=== PATIENT | female | born 1990 | race American Indian/Alaskan Native ===

== ENCOUNTER 2017-05-23 15:37 | Emergency (ER) | payer SELFPAY ==
[2017-05-23 15:58] VITALS: BP 135/78
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
== END 2017-05-23 17:03 | disposition left against medical advice (07) ==
LOC: ED 15:37
DX: Z53.21 Procedure and treatment not carried out due to patient leaving prior to being seen by health care provider (principal)
CPT/HCPCS: 36415; 84702; 84703; 99283

== ENCOUNTER 2020-12-05 06:16 | Emergency (ER) | payer MEDICAID ==
[2020-12-05] MEDS ORDERED: ALBUTEROL 2.5 MG/3 ML NEBU IH ONE ×2 (06:49→06:51)
[2020-12-05] MEDS ORDERED: predniSONE 20 MG TAB PO ONE (06:51)
[2020-12-05] MEDS ORDERED: IPRATROPIUM 0.02% NEBU 2.5 ML IH ONE (06:51)
--- NOTE | 2020-12-05 06:53 | Emergency Department Report ---
HPI - General Chief Complaint: Adult Asthma Time Seen by Provider: 12/05/20 06:41 - HPI HPI: This is a 30-year-old -[place] female presents to the emergency department with shortness of breath, wheezing and chest tightness that started about 30 minutes prior to arrival that the patient says is "my asthma." She says that she ran out of her medications a few days ago and has been having a difficult time getting them refilled. She denies any fever, chest pain, lower extremity swelling, back pain, nausea, vomiting or diaphoresis. She denies any tobacco use. No recent travel or sick contacts at home. No known exposure to anyone with COVID-19. The patient is usually on an albuterol/ipratropium nebulized treatment, Qvar, a rescue inhaler, and some type of inhaled steroid. ED Past Medical Hx - Past Medical History Previous Medical History?: Yes Hx Hypertension: No Hx Congestive Heart Failure: No Hx Diabetes: No Hx Deep Vein Thrombosis: No Hx Renal Disease: No Hx Sickle Cell Disease: No Hx Seizures: No Hx Asthma: Yes (last attack 1 year ago) Hx COPD: No Hx HIV: No - Surgical History Past Surgical History?: No - Social History Smoking Status: Unknown if ever smoked - Medications Home Medications: Home Medications Medication Instructions Recorded Confirmed Last Taken Type Albuterol Sulfate [Albuterol 0.63% 0.63 mg IH TID PRN #90 ml 01/12/16 Unknown Rx NEBS] Prednisone [predniSONE 10 mg 10 mg PO .TAPER #1 tab.ds.pk 01/12/16 Unknown Rx (6-Day Pack, 21 Tabs)] Albuterol Mdi (or & Nicu Only) 1 puff IH Q4-6H PRN #1 inha 12/05/20 Unknown Rx [ProAir HFA Inhaler] Beclomethasone Dipropionate [Qvar 1 - 2 puff IH BID #1 hfa.aeroba 12/05/20 Unknown Rx Redihaler] Ipratropium/Albuterol Sulfate 1 ampul IH Q6HR PRN #1 box 12/05/20 Unknown Rx [DUONEB *Not for PRN Use*] predniSONE [Deltasone] 20 mg PO BID #8 tab 12/05/20 Unknown Rx ED Review of Systems ROS: Stated complaint: ASTHMA Other details as noted in HPI Comment: All other systems reviewed and negative Constitutional: denies: chills, fever Eyes: denies: eye pain, vision change ENT: denies: ear pain, throat pain Respiratory: cough, shortness of breath, wheezing Cardiovascular: denies: palpitations, edema Gastrointestinal: denies: abdominal pain, vomiting Genitourinary: denies: dysuria, discharge Musculoskeletal: denies: back pain, arthralgia Skin: denies: rash, lesions Neurological: denies: headache, weakness Physical Exam - Physical Exam Vital Signs: Vital Signs 12/05/20 06:36 Pulse Rate 86 Respiratory 24 Rate O2 Sat by Pulse 95 Oximetry Physical Exam: GENERAL: The patient is well-developed well-nourished. HENT: Normocephalic. Atraumatic. Patient has moist mucous membranes. EYES: Extraocular motions are intact. NECK: Supple. Trachea is midline. CHEST/LUNGS: Mild to moderate wheezing throughout the chest. There is some tachypnea but no accessory muscle use. HEART/CARDIOVASCULAR: Regular. There is no tachycardia. There is no murmur. ABDOMEN: Abdomen is soft, nontender. Patient has normal bowel sounds. SKIN: Skin is warm and dry. NEURO: The patient is awake, alert, and oriented. The patient is cooperative. The patient has no focal neurologic deficits. Normal speech. MUSCULOSKELETAL: There is no tenderness or deformity. There is no limitation range of motion. ED Course Vital Signs 12/05/20 06:36 Pulse Rate 86 Respiratory 24 Rate O2 Sat by Pulse 95 Oximetry ED Medical Decision Making - Medical Decision Making This patient presents with some shortness of breath and wheezing that she feels is due to an asthma exacerbation. She just recently ran out of her medications. On examination she has moderate wheezing throughout the chest and some tachypnea. She does not appear in any respiratory distress but does appear in need of a breathing treatment. The patient was given an extended breathing treatment with both albuterol and ipratropium. She was also given a dose of prednisone. Upon reevaluation the patient is feeling greatly improved and also appears improved with almost complete resolution of her bronchospasm/wheezing. The patient no longer has any tachypnea. Her vital signs have been reassuring including being afebrile and no hypoxia. I did not feel that the patient required any laboratory studies. The patient deferred/refused a chest x-ray. She was seen ambulatory in the emergency department without any return or increase of bronchospasm or increased work of breathing. She says that she has good outpatient follow-up with primary care. She has been given a prescription for a course of steroids, her Qvar, and the albuterol inhaler and nebulizer treatments. She will return to the emergency department with any worsening of her symptoms or with any acute distress. Critical Care Time: No Critical care attestation.: If time is entered above; I have spent that time in minutes in the direct care of this critically ill patient, excluding procedure time. ED Disposition Clinical Impression: Medication refill Asthma exacerbation Qualifiers: Asthma severity: unspecified severity Asthma persistence: unspecified Qualified Code(s): J45.901 - Unspecified asthma with (acute) exacerbation Disposition: TO HOME OR SELFCARE Is pt being admited?: No Condition: Stable Instructions: Asthma Attack Additional Instructions: Please follow-up with your primary care physician in the next few days. Return to the emergency department with any worsening of your symptoms, new or concerning symptoms not addressed during this current emergency department visit, or with any acute distress. Prescriptions: predniSONE [Deltasone] 20 mg PO BID #8 tab Ipratropium/Albuterol Sulfate [DUONEB *Not for PRN Use*] 1 ampul IH Q6HR PRN #1 box PRN Reason: Wheezing Albuterol Mdi (or & Nicu Only) [ProAir HFA Inhaler] 1 puff IH Q4-6H PRN #1 inha PRN Reason: Shortness Of Breath Beclomethasone Dipropionate [Qvar Redihaler] 1 - 2 puff IH BID #1 hfa.aeroba Referrals: PRIMARY CARE, [Primary Care Provider] - 2-3 Days Time of Disposition: 08:02
[2020-12-05 08:11] VITALS: BP 138/86
== END 2020-12-05 08:12 | disposition home or self-care (01) ==
LOC: ED 06:16
DX: J45.901 Unspecified asthma with (acute) exacerbation (principal); Z76.0 Encounter for issue of repeat prescription; Z79.899 Other long term (current) drug therapy; Z91.012 Allergy to eggs; Z91.013 Allergy to seafood; Z91.018 Allergy to other foods
CPT/HCPCS: 94640; 99282; J7512